=== PATIENT | male | born 1960 | race Caucasian/White ===

== ENCOUNTER 2024-02-10 06:06 | Day surgery (SDC) | payer OTHER, SELFPAY ==
[2024-02-08 08:25] VITALS: BMI 28.6
[2024-02-10] VITALS (15 sets, daily range): BP systolic 60–130; BP diastolic 39–90; BMI 28.6
[2024-02-10] MEDS: CELEBREX 200 MG PO (06:44)
[2024-02-10] MEDS: TYLENOL 1000 MG PO (06:44)
--- NOTE | 2024-02-10 08:24 | W.IMMPOSTOP ---
Surgical Immed Post Op Note
-
Primary Surgeon: Alejandro Coleman MD
Assisting Surgeon: None
Pre-op Diagnosis: Anal fissure
Post-op Diagnosis: Anal fissure
Procedure Performed: Exam under anesthesia, fissurectomy, internal anal sphincter injection of Botox, bilateral pudendal nerve block
Anesthesia Type: Sedation with local
Specimen / Cultures: None
Estimated Blood Loss: 5 mL
Complications: None
Operative Findings: Small posterior midline fissure, about 6 mm in length and 3 mm wide; fulgurated the fissure; injected 100 units of Botox in 4 quadrants equally
--- NOTE | 2024-02-10 08:26 | OR.RPT ---
Operative Report
Operative Report
DATE OF OPERATION: 02/10/2024
SURGEON: Alejandro Coleman MD
PREOPERATIVE DIAGNOSIS: Anal fissure
POSTOPERATIVE DIAGNOSIS: Anal fissure
OPERATION: Exam under anesthesia, injection of botox into internal anal sphincter, fissurectomy, bilateral pudendal nerve block
ASSISTANTS:
1. None
ANESTHESIA: MAC w/ local
ESTIMATED BLOOD LOSS: 5 mL
FINDINGS:
1. Posterior midline fissure of about 6 mm in length by 3 mm wide
2. Incidental findings: Small perianal skin tags, small to moderate mixed-component hemorrhoid in the right posterior quadrant, not irritated or bleeding
SPECIMENS:
1. None
DRAINS: None
COMPLICATIONS: None
INDICATIONS: The patient is a 63-year-old male who presented to my office with pain worse with BMs. His story and exam was most consistent with anal fissure. He failed to improve after a trial of nonoperative measures. Therefore, the patient was
recommended to have surgery. The operation was discussed with the patient in detail, including the risks, benefits and alternatives. Risks described included, but not limited to bleeding, infection, urinary retention, damage to nearby structures
such as the anal sphincter, fecal incontinence, recurrence, and anesthetic risks. The patient understood and agreed to proceed. The consent was signed and placed in the chart.
PROCEDURE IN DETAIL: The patient was taken to the operating room. The patient was then placed on the operating table in prone position. Sequential compression devices were placed bilaterally. Sedation was commenced without complication. Two seat
belts were secured around the legs and upper back. The buttocks were taped apart. The perineum was shaved, prepped and draped in the usual fashion. A time-out was then performed verifying the correct patient, procedure, operative site,
positioning, and special equipment.
Local anesthesia used was a mixture of 60 mL of 0.25% Marcaine epinephrine and 0.6 mg of dexamethasone. 40 mL was injected perianally at the beginning of the case. The anorectal exam was performed assessing all four quadrants of the anal canal
using Hill-Damon retractors in progressively increasing size. I noted small circumferential anal skin tags along the anal verge. There was a small to moderate-sized mixed component hemorrhoid in the posterior quadrant without evidence of
irritation or bleeding. The external component was small. This was left alone as it was unlikely related to his symptoms. There was a small posterior midline anal fissure, measuring about 6 mm in length and 3 mm wide. There was some granulation
tissue at the base, but otherwise did not have evidence of chronicity. The internal sphincter was hypertonic.
The fissure was fulgurated with electrocautery to encourage wound healing. 100 units of Botox was drawn up with 2 mL of sterile saline. Using a 30-gauge needle, the Botox was injected in 4 quadrants in equal portions, specifically 25 units in the
anterior midline, right lateral quadrant, posterior midline and left lateral quadrant. Care was taken to avoid incidental injection into the external sphincter.
The remaining 20 mL of local were injected. 5 mL was injected bilaterally for a pudendal nerve block. 10 mL was injected around the surgical site and perianally. Hemostasis was reassessed once more using the small Hill-Damon and was confirmed.
At this point, the procedure was complete. All needle, sponge and instrument counts were correct. The patient tolerated the procedure well and was transferred to the recovery room in stable condition with gauze dressing in place secured with silk
tape.
DICTATED BY: Alejandro Coleman MD
== END 2024-02-10 10:00 | disposition home or self-care (01) ==
LOC: SDS 06:06
PROVIDERS: ATTENDING PHYSICIAN Surgery; FAMILY PHYSICIAN Family Medicine
PROC: 3E0H7GC Introduction of Other Therapeutic Substance into Lower GI, Via Natural or Artificial Opening (ICD-10-PCS; 2024-02-10)
DX: K60.2 Anal fissure, unspecified (principal)
CPT/HCPCS: 46200; 36415; 93005; J0585

== ENCOUNTER → 2024-06-04 09:48 | Outpatient (REF) | payer OTHER, SELFPAY | LOC: RAD 09:48 | PROVIDERS: ATTENDING PHYSICIAN Physician Assistant Medical; FAMILY PHYSICIAN Family Medicine | DX: M25.551 Pain in right hip (principal) | CPT/HCPCS: 73502 ==

== ENCOUNTER 2025-03-29 06:18 | Day surgery (SDC) | payer OTHER, SELFPAY ==
[2025-03-29 09:10] VITALS: BP 139/93
[2025-03-29] MEDS: NORMOSOL-R/PLASMALYTE-A 1000 IV (09:10)
[2025-03-29] MEDS: CELEBREX 200 MG PO (09:25)
[2025-03-29] MEDS: TYLENOL 1000 MG PO (09:25)
--- NOTE | 2025-03-29 11:21 | W.IMMPOSTOP ---
Addendum entered and electronically signed by Alejandro Coleman MD 03/29/25 13:40:
updated patient and patient's family member in SDS (earlier)
Original Note:
Surgical Immed Post Op Note
-
Primary Surgeon: Alejandro Coleman MD none
Assisting Surgeon:
Pre-op Diagnosis: Recurrent anal fissure
Post-op Diagnosis: Recurrent anal fissure
Procedure Performed: Exam under anesthesia, biopsy and fulguration of anal fissure, anal fissure injection of Kenalog, bilateral pudendal nerve block
Anesthesia Type: Sedation with local
Specimen / Cultures: anal fissure (margin) biopsy
Estimated Blood Loss: 5 mL
Complications: None
Operative Findings: Persistent chronic appearing posterior midline anal fissure, extending from anal verge to dentate line (about 2.5 cm) and 1.5 cm wide; sphincter tone not significantly elevated; no other concerning incidental findings; minimal
internal hemorrhoids in the 3�column distribution, no masses, no proctitis
[2025-03-29 11:23] VITALS: BP 100/49
--- NOTE | 2025-03-29 11:26 | OR.RPT ---
Operative Report
Operative Report
DATE OF OPERATION: 03/29/2025
SURGEON: Alejandro Coleman MD
PREOPERATIVE DIAGNOSIS: Chronic recurrent anal fissure
POSTOPERATIVE DIAGNOSIS: Chronic recurrent anal fissure
OPERATION: Exam under anesthesia, biopsy and fulguration of anal fissure, Kenalog injection of anal fissure, bilateral pudendal nerve block
ASSISTANTS:
1. None
ANESTHESIA: Sedation with local
ESTIMATED BLOOD LOSS: 5 mL
FINDINGS:
1. Persistent posterior midline anal fissure that is chronic appearing with exposed internal sphincter muscle; it measures about 2.5 cm in length and 1.5 cm in width, extending from the anal verge to the dentate line
2. No concerning incidental findings; no masses, no proctitis, no concerning internal hemorrhoids
SPECIMENS:
1. Anal fissure (margin) biopsy
DRAINS: None
COMPLICATIONS: None
INDICATIONS: The patient is a 64-year-old male who initially presented with an anal fissure. I performed Botox injection for him in January 2024. He had resolution of his symptoms. However, his symptoms recurred December 2024 and was found to
have a recurrent fissure in the posterior midline. After another trial of nonoperative measures, the fissure persisted. He has baseline mild fecal incontinence to liquid stool only. Options were discussed with the patient, including Kenalog
injection. He elected to proceed with this due to the lower risk of worsening of the incontinence. I explained that this is a newer procedure without long-term data so risk of long-term complications is not well-known. He understood well. The
operation was discussed with the patient in detail, including the risks, benefits and alternatives. Risks described included, but not limited to bleeding, infection, urinary retention, damage to nearby structures such as the anal sphincter, fecal
incontinence, recurrence/failure, and anesthetic risks. The patient understood and agreed to proceed. The consent was signed and placed in the chart.
PROCEDURE IN DETAIL: The patient was taken to the operating room. Sequential compression devices were placed bilaterally. The patient was placed on the operating table in prone position. Sedation was commenced without complication. Two seat belts
were secured around the legs and upper back. The buttocks were taped apart. The perineum was shaved, prepped and draped in the usual fashion. A time-out was performed verifying the correct patient, procedure, operative site, positioning, and
special equipment.
Local anesthesia used was a mixture of 30 mL of 0.25% Marcaine with epinephrine, 30mL of 1% lidocaine plain and 0.6 mg of dexamethasone. 40 mL was injected perianally at the beginning of the case. The anorectal exam was performed assessing all four
quadrants of the anal canal using Hill-Damon retractors in progressively increasing size. The posterior midline fissure was seen extending from the anal verge to the dentate line. I measured this to be 2.5 cm in length and 1.5 cm in width. The
edges were rolled and the internal sphincter muscle was exposed along its base. The internal sphincter tone was essentially normal, perhaps slightly elevated. There were no other concerning findings. Specifically, there were no masses and there
was no proctitis. There were small to minimal internal hemorrhoids in the usual 3�column distribution. The perianal skin was noted to have a vitiligo appearance.
Biopsies were taken from the edges of the fissure using a forceps and Metzenbaum scissors. The fissure base was curetted to remove granulation tissue. The fissure was fulgurated with electrocautery to encourage wound healing. 50mg of Kenalog in
5mL was drawn up. Using a 27-gauge needle, the Kenalog was injected directly into the fissure base. Hemostasis was assured.
The remaining 20 mL of local were injected. 5 mL was injected bilaterally for a pudendal nerve block. 10 mL was injected around the surgical site and perianally. Hemostasis was reassessed once more using the small Hill-Damon and was confirmed.
At this point, the procedure was complete. All needle, sponge and instrument counts were correct. The patient tolerated the procedure well and was transferred to the recovery room in stable condition with gauze dressing in place secured with silk
tape.
DICTATED BY: Alejandro Coleman MD
[2025-03-29 11:32] VITALS: BP 106/73
[2025-03-29 11:45] VITALS: BP 120/67
[2025-03-29 12:00] VITALS: BP 111/63
== END 2025-03-29 12:20 | disposition home or self-care (01) ==
LOC: SDS 06:18
PROVIDERS: ATTENDING PHYSICIAN Surgery
DX: K60.1 Chronic anal fissure (principal)
CPT/HCPCS: 46910; 46505; 88305; 88341; 88342